=== PATIENT | female | born 1980 | race Two or more races ===

== ENCOUNTER 2022-08-31 06:04 | Emergency (ER) | payer MEDICAID ==
[~2022-08-31] VITALS: Ht 170.2 cm; Wt 72.7 kg
[2022-08-31 06:20] VITALS: BP 164/101
[2022-08-31 07:09] LABS: Basophils # (auto) 0.1 10 ^3/uL (0-0.2); Eosinophils # (auto) 0.1 10 ^3/uL (0-0.8); Eosinophils % (auto) 2.2 % (0.0-7.0); Mean Corpuscular Hemoglobin 24.1 pg (28.0-32.0); Mean Corpuscular Hgb Conc. 31.9 g/dL (32.0-36.0); Monocytes # (auto) 0.5 10 ^3/uL (0-1.3); Neutrophils # (auto) 2.5 10 ^3/uL (1.6-8.6); Nucleated Red Blood Cells % 0.1 %; White Blood Cell 5.6 10^3/uL (4.4-10.8)
[2022-08-31 07:10] LABS: Hematocrit 35.6 % (36.0-46.0); Hemoglobin 11.3 g/dL (12.2-16.2); Lymphocytes # (auto) 2.3 10 ^3/uL (0.4-5.4); Lymphocytes % (auto) 41.8 % (10.0-50.0); Mean Corpuscular Volume 75.5 fL (80.0-100.0); Monocytes % (auto) 8.8 % (0.0-12.0); Neutrophils % (auto) 45.2 % (37.0-80.0); Red Blood Cells 4.72 10^6/uL (4.0-5.20); Red Cell Distribution Width 14.7 % (11.8-14.3)
[2022-08-31] MEDS ORDERED: ONDANSETRON ODT 4 MG TAB PO ONE (07:15)
[2022-08-31] MEDS ORDERED: HYDROmorphone HCL 2 MG/ML VL/or syr IM ONE (07:15)
[2022-08-31 07:26] LABS: Albumin 3.9 g/dL (3.4-5.0); Magnesium 2.2 mg/dL (1.6-2.6); Potassium 3.5 mmol/L (3.5-5.1)
[2022-08-31 07:30] LABS: BUN/Creatinine Ratio 8.8 (10.0-20.0); Bilirubin, Total 0.9 mg/dL (0.2-1.0); Total Protein 7.6 g/dL (6.4-8.2)
[2022-08-31 07:32] LABS: Urine Bacteria FEW /hpf (None Seen); Urine Blood TRACE /uL (Negative); Urine Mucus FEW (None Seen); Urine Specific Gravity 1.018 (1.001-1.035); Urine WBC 2 /hpf (0 - 5)
[2022-08-31 07:34] LABS: Amphetamine Screen, Urine POSITIVE (NEGATIVE); Barbiturate Scree,Urine NEGATIVE (NEGATIVE); Benzodiazephine Screen, Urine NEGATIVE (NEGATIVE); Cannabinoid Screen, Urine NEGATIVE (NEGATIVE); Cocaine Screen, Urine NEGATIVE (NEGATIVE); Phencyclidine Screen, Urine NEGATIVE (NEGATIVE)
[2022-08-31 07:43] LABS: Opiate Scree,Urine POSITIVE (NEGATIVE)
[2022-08-31 07:45] LABS: INR 1.03 (0.9-1.15); Partial Thromboplastin Time 27.3 sec (24.6-33.4)
[2022-08-31] MEDS ORDERED: IOHEXOL 300 MG/ML 100ML BOTTLE IJ ONE (07:49)
[2022-08-31] MEDS ORDERED: IBUP600T28 PO (10:26)
[2022-08-31] MEDS ORDERED: CEPH-510 PO (10:26)
== END 2022-08-31 14:49 | disposition left against medical advice (07) ==
LOC: ER 06:04
DX: N39.0 Urinary tract infection, site not specified (principal); K59.00 Constipation, unspecified; Z90.49 Acquired absence of other specified parts of digestive tract; Z32.02 Encounter for pregnancy test, result negative; Z79.899 Other long term (current) drug therapy
CPT/HCPCS: 36415; 74176; 80053; 80307; 81001; 81025; 83605; 83690; 83735; 84484; 85025; 85610; 85730; 87040; 99284; J7030

== ENCOUNTER 2024-01-16 15:31 | Emergency (ER) | payer MEDICAID, OTHER ==
[~2024-01-16] VITALS: Ht 162.6 cm; Wt 8.0 kg
[~2024-01-16 15:31] MED LIST: CEPH-510 PO; IBUP1TAB5 PO
[2024-01-16 15:40] VITALS: BP 153/89; PULSE 88; RESP 16; O2SAT 96
== END 2024-01-16 20:08 | disposition left against medical advice (07) ==
LOC: ER 15:31 → EDBD 15:31 → ER 17:00
DX: S00.83XA Contusion of other part of head, initial encounter (principal); M25.531 Pain in right wrist; Z98.890 Other specified postprocedural states; Z79.899 Other long term (current) drug therapy; X58.XXXA Exposure to other specified factors, initial encounter; Y93.89 Activity, other specified; Y92.512 Supermarket, store or market as the place of occurrence of the external cause; Y99.8 Other external cause status

== ENCOUNTER → 2024-02-27 | Emergency (ER) | payer OTHER ==
[~2024-02-27] MED LIST changes: +AZIT-185 PO; +LEVO500T91 PO; +PROM1SOL4 PO
== END | disposition left against medical advice (07) ==
LOC: ER 04:37
DX: J11.1 Influenza due to unidentified influenza virus with other respiratory manifestations (principal); Z53.21 Procedure and treatment not carried out due to patient leaving prior to being seen by health care provider

== ENCOUNTER 2024-12-27 07:46 | Emergency (ER) | payer MEDICAID, OTHER ==
[~2024-12-27] VITALS: Ht 170.2 cm; Wt 66.0 kg
[2024-12-27 08:27] VITALS: BP 149/89; PULSE 86; RESP 16; TEMP 99.2; O2SAT 98
== END 2024-12-27 09:20 | disposition left against medical advice (07) ==
LOC: ER 07:51
DX: R21 Rash and other nonspecific skin eruption (principal); Z53.21 Procedure and treatment not carried out due to patient leaving prior to being seen by health care provider

== ENCOUNTER 2025-01-09 15:24 | Emergency (ER) | payer MEDICAID ==
[~2025-01-09] VITALS: Ht 170.2 cm; Wt 63.2 kg
[2025-01-09] MEDS ORDERED: IBUP1TAB5 PO (15:51)
[2025-01-09] MEDS ORDERED: BACDST PO (15:51)
--- NOTE | 2025-01-09 15:52 | ED.PDOC ---
History of Present Illness(SKN HPI Comments This is a homeless 44-year-old female who arrives the ED today for evaluation of multiple wound concerns. Patient arrives with multiple bites to her lateral left arm as well as left leg. Patient states she may have been bit by an unknown insect and has some scabbing over the sites of insult. Patient denies any fever nausea or vomiting. Tetanus is not up-to-date. Vital signs were stable. Chief Complaint: Wound Check Time Seen by MD: 15:29 Primary Care Provider: NONE History of Present Illness: Nurses Notes Allergies: Coded Allergies: NO KNOWN ALLERGIES (Unverified , 01/16/24) Home Meds Active Scripts Promethazine-Dm (Promethazine Dm 6.25-15 mg/5Ml) 1 Maddison Maddison, 5 ML PO TID, #180 ML Prov:NICO MCDANIEL 02/27/24 Azithromycin (ZITHROMAX TABLET) 250 Mg Tb, 250 MG PO DAILY, #6 TAB Prov:NICO MCDANIEL 02/27/24 Levofloxacin Hemihydrate (LEVAQUIN 500 MG) 500 Mg Tab, 1 TAB PO DAILY, #10 TAB Prov:NICO MCDANIEL 02/27/24 Ibuprofen Micronized (Ibuprofen) 600 Mg Tab, 600 MG PO TIDPRN PRN for 10 Days, #30 TAB Prov:MARIE SANCHEZ DO 08/31/22 Cephalexin ( Keflex 500) 500 Mg Cap, 1 CAP PO TID for 10 Days, #30 CAP Prov:MARIE SANCHEZ DO 08/31/22 Information Source: Patient Mode of Arrival: Ambulatory Severity: Moderate Timing: Days Duration: Since onset Prehospital treatment: None Location: Arm, Leg Mechanism: Insect Occurence: Outdoors Object: Unknown Condition of Object: Dirty Tetanus: >5 Years Associated Signs and Symptoms: Redness, Swelling, Pus Past Medical History PAST MEDICAL HISTORY: Denies Surgical History: Cholecystectomy [employer] History: Denies all [employer] Hx Family History Family History: Reviewed,noncontributory to illness Social History Smoker: Non-Smoker Alcohol: Denies ETOH Use Drugs: Denies Drug Use Lives In: Homeless Constitutional: denies: chills, diaphoresis, fatigue, fever, malaise, sweats, weakness, others EENTM: denies: blurred vision, double vision, ear bleeding, ear discharge, ear drainage, ear pain, ear ringing, eye pain, eye redness, hearing loss, mouth pain, mouth swelling, nasal discharge, nose bleeding, nose congestion, nose pain, photophobia, tearing, throat pain, throat swelling, voice changes, others Respiratory: denies: cough, hemoptysis, orthopnea, SOB at rest, shortness of breath, SOB with excertion, stridor, wheezing, others Cardiovascular: denies: chest pain, dizzy spells, diaphoresis, Dyspnea on exertion, edema, irregular heart beat, left arm pain, lightheadedness, palpitations, PND, syncope, others Gastrointestinal: denies: abdomen distended, abdominal pain, blood streaked bowels, constipated, diarrhea, dysphagia, difficulty swallowing, hematemesis, melena, nausea, poor appetite, poor fluid intake, rectal bleeding, rectal pain, vomiting, others Genitourinary: denies: abnormal vagina bleeding, burning, dyspareunia, dysuria, flank pain, frequency, hematuria, incontinence, pain, , vagina discharge, urgency, others Neurological: denies: dizziness, fainting, headache, left sided numbness, left sided weakness, numbness, paresthesia, pre-existing deficit, right sided numbness, right sided weakness, seizure, speech problems, tingling, tremors, w eakness, others Musculoskeletal: denies: back pain, gout, joint pain, joint swelling, muscle pain, muscle stiffness, neck pain, others Integumetry: reports: wounds (Multiple wounds to lateral left arm and lateral left leg); denies: bruises, change in color, change in hair/nails, dryness, laceration, lesions, lumps, rash, others Allergic/Immunocompromised: denies: Difficulty Healing, Frequent Infections, Hives, Itching, others Hematologic/Lymphatic: denies: anemia, blood clots, easy bleeding, easy bruising, swollen glands, others Endocrine: denies: excessive hunger, excessive sweating, excessive thirst, excessive urination, flushing, intolerance to cold, intolerance to heat, unexplained weight gain, unexplained weight loss, others Psychiatric: denies: anxiety, bipolar disorder, depression, hopeless, panic disorder, schizophrenia, sleepless, suicidal, others Physical Exam General Appearance: Mild Distress (Moderate distress due to her wound concerns.), Normal HEENT: Normal ENT Inspection, Pharynx Normal, TMs Normal Neck: Full Range of Motion, Non-Tender, Normal, Normal Inspection Respiratory: Chest Non-Tender, Lungs Clear, No Accessory Muscle Use, No Respiratory Distress, Normal Breath Sounds Cardiovascular: No Edema, No JVD, No Murmur, No Gallop, Normal Peripheral Pulses, Regular Rate/Rhythm Breast Exam: Deferred Gastrointestinal: No Organomegaly, Non Tender, No Pulsatile Mass, Normal Bowel Sounds, Soft Genitalia: Deferred Pelvic: Deferred Rectal: Deferred Extremities: No calf tenderness, Normal capillary refill, Normal inspection, Normal range of motion, Non-tender, No pedal edema Neurologic: Alert, No Motor Deficits, Normal Affect, Normal Mood, No Sensory Deficits Cerebellar Function: Normal Reflexes: Normal Skin: Wounds (Patient has multiple insect bite wounds that have become infected due to self manipulation on her lateral left forearm and upper arm as well as her lateral left leg. To wounds are weeping and all wounds reveal local erythema with mild edema.) Lymphatic: No Adenopathy Was a procedure done? Was a procedure done?: No Differential Diagnosis (INTG) Differential Diagnosis: Cellulitis, Insect Envenomation X-Ray, Labs, Meds, VS Vital Signs Date Time Temp Pulse Resp B/P (MAP) Pulse Ox O2 Delivery O2 Flow Rate FiO2 01/09/25 15:26 97.9 89 16 140/88 97 97.9 X-Ray, Labs, Meds, VS Comment Patient received a tetanus update. Advised patient utilize antibiotics as directed until completion. Patient is homeless and therefore, advised her to return to the ED tomorrow she is assistance with only placement concerns as we do not have director social available today. Patient was grateful and states she may return. Time of 1ST Reevaluation: 15:50 Reevaluation 1ST: Improved Consultation: PCP Patient Education/Counseling: Diagnosis, Treatment Family Education/Counseling: Diagnosis, Treatment SEPSIS Sepsis Screen Date sepsis recognized/suspect: Jan 09, 2025 Time Sepsis recognized/suspect: 1525 Recent Procedure: No On Antibiotic Therapy: No Respiratory Rate >20: No Heart Rate >90: No Temp<36 C (96.8 F) or >38.3 C: No SBP <90 or MAP <65 mmHG: No New Acute Mental Status Change: No Is the patient on CPAP, BIPAP,: No Physician Orders Tetanus [id number] (Boostrix (01/09/25 15:45) Ketorolac Injection (Toradol Injection) (01/09/25 15:45) Vital Signs Date Time Temp Pulse Resp B/P (MAP) Pulse Ox O2 Delivery O2 Flow Rate FiO2 01/09/25 15:26 97.9 89 16 140/88 97 97.9 Departure 1 Departure Time of Disposition: 15:50 Impression: Primary Impression: Cellulitis Disposition: HOME / SELF CARE / HOMELESS Condition: Stable Additional Instructions: Advised patient utilize antibiotics as directed until completion. Pain medication as needed. If patient needs help with possible care home placement, please return to the ED for assistance. e-Prescriptions Ibuprofen Micronized (Ibuprofen) 600 Mg Tab 600 MG PO Q6HP PRN, #15 TAB Prov: RACHEL LITTLEJOHN PAC 01/09/25 Sulfamethoxazole W/Trimethopri (Bactrim Ds Tablet) 1 Tab Tb 1 TAB PO BID for 10 Days, #20 TAB Prov: RACHEL LITTLEJOHN PAC 01/09/25 Discharged With: Self Critical Care Note Critical Care Time?: No Stability Stability form required: No Heart Score Heart Score: Heart Score Response (Comments) Value History N/A 0 EKG N/A 0 Age N/A 0 Risk Factors N/A 0 Troponin N/A 0 Total 0 RACHEL LITTLEJOHN PAC Jan 09, 2025 15:52
[2025-01-09] MEDS: TETANUS-DIPTH-ACEL PERTUSSIS 0.5ML SYR Tdap IM ONE (17:49)
[2025-01-09] MEDS: KETOROLAC TROMETH 60MG/2ML VIAL IM ONE (17:50)
[2025-01-09 18:00] VITALS: BP 156/99; PULSE 74; RESP 18; TEMP 97.9; O2SAT 100
== END 2025-01-09 18:07 | disposition home or self-care (01) ==
LOC: ER 15:24
DX: L03.114 Cellulitis of left upper limb (principal); L03.116 Cellulitis of left lower limb; Z79.899 Other long term (current) drug therapy; Z90.49 Acquired absence of other specified parts of digestive tract; Z59.00 Homelessness unspecified
CPT/HCPCS: 90471; 90715; 96372; 99284; J1885

== ENCOUNTER 2025-06-08 12:39 | Emergency (ER) | payer MEDICAID, OTHER ==
[~2025-06-08] VITALS: Ht 162.6 cm; Wt 68.1 kg
[~2025-06-08 12:39] MED LIST changes: +BACDST PO
[2025-06-08 12:55] VITALS: BP 142/93; PULSE 77; RESP 18; TEMP 97.6; O2SAT 98
== END 2025-06-08 14:06 | disposition left against medical advice (07) ==
LOC: EDBD 12:39 → ER 12:39
DX: R05.9 Cough, unspecified (principal); Z79.899 Other long term (current) drug therapy